=== PATIENT | male | born 1990 | race African-American/Black ===

== ENCOUNTER 2018-03-25 11:49 | Emergency (ER) | payer SELFPAY ==
[~2018-03-25] VITALS: Ht 177.8 cm; Wt 73.5 kg
[2018-03-25] MEDS ORDERED: predniSONE 20 MG TABLET ONE (12:03)
[2018-03-25] MEDS ORDERED: IPRATROPIUM NEB FS 0.5 MG/2.5 ML AMPUL.NEB ONE (12:04)
[2018-03-25] MEDS ORDERED: ALBUTEROL FS 2.5 MG/3 ML VIAL.NEB ONE (12:04)
--- NOTE | 2018-03-25 12:19 | NUR ---
SOB- ASTHMA ATTACK X FEW DAYS, NAD NOTED, VSS, PT WAS PUT ON O2 VIA MD BRANDIE AT .
[2018-03-25] MEDS ORDERED: IPRATROPIUM NEB FS 0.5 MG/2.5 ML AMPUL.NEB NEB ONE (12:30)
[2018-03-25] MEDS ORDERED: ALBUTEROL FS 2.5 MG/3 ML VIAL.NEB CONTNEB ONE (12:30)
[2018-03-25] MEDS ORDERED: predniSONE 20 MG TABLET PO ONE (12:30)
[2018-03-25 13:09] VITALS: BP 121/86
--- NOTE | 2018-03-25 13:10 | NUR ---
Patient discharged to home in stable condition. Written and verbal after care instructions given. Patient verbalizes understanding of instruction.
== END 2018-03-25 13:09 | disposition home or self-care (01) ==
LOC: ER 11:50
DX: J45.901 Unspecified asthma with (acute) exacerbation (principal); F12.10 Cannabis abuse, uncomplicated
CPT/HCPCS: A4606; Z7610

== ENCOUNTER 2022-01-18 06:42 | Emergency (ER) | payer OTHER ==
[~2022-01-18] VITALS: Ht 177.8 cm; Wt 81.6 kg
--- NOTE | 2022-01-18 06:50 | NUR ---
BIBS. ASTHMA ATTACK X 3 HRS. WHEEZING. INHALER INEFFECTIVE. PATIENT ALERT AND ORIENTED X3. AMBULATORY WITH NON LABORED BREATHING IN BED 07 ON MONITOR AND PULSE OX AWAITING MD PALMER./
[2022-01-18] MEDS ORDERED: methylPREDNISolone SOD SUCC 125 MG/2ML VIAL ONE (06:53)
[2022-01-18] MEDS ORDERED: IPRATROPIUM NEB FS 0.5 MG/2.5 ML AMPUL.NEB ONE (06:58)
[2022-01-18] MEDS ORDERED: ALBUTEROL FS 2.5 MG/3 ML VIAL.NEB ONE ×2 (06:58→08:28)
--- NOTE | 2022-01-18 06:59 | NUR ---
BIBS c/o ASTHMA ATTACK X 3 HRS. + WHEEZING.PER PATIENT, PRESCRIBED INHALER INEFFECTIVE. PT PLACED ON MONITOR AND PULSE OX. O2 SAT 94% RA. RT PAGED FOR BREATHING TX.
[2022-01-18] MEDS ORDERED: methylPREDNISolone SOD SUCC 125 MG/2ML VIAL IV ONE (07:00)
[2022-01-18] MEDS ORDERED: ALBUTEROL FS 2.5 MG/3 ML VIAL.NEB CONTNEB ONE (07:00)
[2022-01-18] MEDS ORDERED: IPRATROPIUM NEB FS 0.5 MG/2.5 ML AMPUL.NEB NEB ONE (07:00)
[2022-01-18] MEDS ORDERED: IV NS 0.9% 1,000 ML BAG IV ONE (07:00)
[2022-01-18 07:23] LABS: BASOPHILS # (AUTO) 0.1 K/uL (0.0-0.2); BASOPHILS % (AUTO) 0.8 % (0.0-2.0); HEMATOCRIT 53 % (39-51); HEMOGLOBIN 17.8 g/dL (13.5-17.5); LYMPHOCYTES # (AUTO) 2.6 K/uL (0.8-4.8); LYMPHOCYTES % (AUTO) 35.3 % (20.0-44.0); MEAN CORPUSCULAR HGB CONC 34 g/dl (31.0-36.0); MEAN CORPUSCULAR VOLUME 94 fL (80-96); MONOCYTES # (AUTO) 0.8 K/uL (0.1-1.30); MONOCYTES % (AUTO) 10.4 % (2.0-12.0); NEUTROPHILS # (AUTO) 3.5 K/uL (1.8-8.9); NEUTROPHILS % (AUTO) 46.5 % (43.0-81.0); PLATELET COUNT (AUTO) 260 K/uL (150-450); RED BLOOD CELL COUNT(AUTO) 5.63 MIL/uL (4.5-6.0); WHITE BLOOD COUNT (AUTO) 7.5 K/uL (4.3-11.0)
[2022-01-18 07:32] LABS: CREATININE 1.2 mg/dL (0.6-1.3); POTASSIUM 3.9 mmol/L (3.5-5.1)
--- NOTE | 2022-01-18 07:34 | NUR ---
ASSESSED PT ON BED AAOX4, NOT IN RESPIRATORY DISTRESS, V/S STABLE, WITH ON GOING BREATHING TX. NOT IN RESPIRATORY DISTRESS. WILL CONTINUE TO MONITOR.
[2022-01-18] MEDS ORDERED: ALBUTEROL FS 2.5 MG/3 ML VIAL.NEB NEB ONE (08:30)
--- NOTE | 2022-01-18 08:30 | NUR ---
RT AT BEDSIDE FOR BREATHING TX.
[2022-01-18] MEDS ORDERED: ALBU18HF2 INH (09:48)
[2022-01-18] MEDS ORDERED: PRED50TA PO (09:48)
--- NOTE | 2022-01-18 10:06 | NUR ---
Patient discharged to home in stable condition. Written and verbal after care instructions given. Patient verbalizes understanding of instruction.
[2022-01-18 10:07] VITALS: BP 124/89
== END 2022-01-18 10:07 | disposition home or self-care (01) ==
LOC: ER 06:44
DX: J45.909 Unspecified asthma, uncomplicated (principal); R06.00 Dyspnea, unspecified; Z79.899 Other long term (current) drug therapy
CPT/HCPCS: 36415; 71045; 80048; 85025; 93005; 94640; 94644; 96361; 96374; 99285; J2930; J7030

== ENCOUNTER 2022-05-13 02:25 | Emergency (ER) | payer OTHER ==
[~2022-05-13] VITALS: Ht 177.8 cm; Wt 90.7 kg
[~2022-05-13 02:25] MED LIST: ALBU18HF2 INH; PRED50TA PO
--- NOTE | 2022-05-13 02:40 | NUR ---
BIBS C/O ASTHMA ATTACK UNRELIEVED BY INHALER X1 WEEK +WHEEZING. PATIENT ALERT AND ORIENTED X3. AMBULATORY IN BED 02 ON MONITOR AND POX AWAITING MD PALMER.
[2022-05-13] MEDS ORDERED: ALBUTEROL FS 2.5 MG/0.5 ML VIAL.NEB ONE (02:44)
[2022-05-13] MEDS ORDERED: IPRATROPIUM NEB FS 0.5 MG/2.5 ML AMPUL.NEB ONE (02:44)
[2022-05-13] MEDS ORDERED: DEXAMETHASONE SOD PHOSPHATE 10 MG/ML VIAL ONE (02:45)
[2022-05-13] MEDS ORDERED: IPRATROPIUM NEB FS 0.5 MG/2.5 ML AMPUL.NEB NEB ONE (03:00)
[2022-05-13] MEDS ORDERED: ALBUTEROL FS 2.5 MG/0.5 ML VIAL.NEB NEB ONE (03:00)
[2022-05-13] MEDS ORDERED: DEXAMETHASONE SOD PHOSPHATE 4 MG/ML VIAL IM ONE (03:00)
[2022-05-13] MEDS ORDERED: PRED50TA PO (03:03)
--- NOTE | 2022-05-13 03:09 | NUR ---
PATIENT WANTS TO GO HOME AFTER IM INJECTION AND FIRST DOSE OF NEBULIZATION TREATMENT. HE REFUSED TO CONTINUE FOR THE NEXT ONE. DR MANCIA MADE AWARE
--- NOTE | 2022-05-13 03:10 | NUR ---
Patient discharged to home in stable condition. Written and verbal after care instructions given. Patient verbalizes understanding of instruction.
[2022-05-13 03:11] VITALS: BP 154/86
== END 2022-05-13 03:11 | disposition home or self-care (01) ==
LOC: ER 02:37
DX: J45.909 Unspecified asthma, uncomplicated (principal); Z79.899 Other long term (current) drug therapy
CPT/HCPCS: 99283; 96372; 94640; J1100

== ENCOUNTER 2022-06-02 12:54 | Emergency (ER) | payer OTHER ==
[~2022-06-02] VITALS: Ht 177.8 cm; Wt 79.4 kg
--- NOTE | 2022-06-02 13:25 | NUR ---
BIBS C/O SHORTNESS OF BREATH UPON EXERTION X3DAYS, RUN OUT OF INHALER YESTERDAY, HX OF ASTHMA. THE PATIENT DENIES PAIN. THE PATIENT IS ATTACHED TO THE MONITOR. WILL CONTINUE TO MONITOR THE PATIENT.
[2022-06-02] MEDS ORDERED: ALBUTEROL FS 2.5 MG/3 ML VIAL.NEB ONE (13:28)
[2022-06-02] MEDS ORDERED: IPRATROPIUM NEB FS 0.5 MG/2.5 ML AMPUL.NEB ONE (13:28)
[2022-06-02] MEDS ORDERED: ALBUTEROL FS 2.5 MG/3 ML VIAL.NEB NEB ONE (13:30)
[2022-06-02] MEDS ORDERED: predniSONE 20 MG TABLET PO ONE (13:30)
[2022-06-02] MEDS ORDERED: IPRATROPIUM NEB FS 0.5 MG/2.5 ML AMPUL.NEB NEB ONE (13:30)
[2022-06-02] MEDS ORDERED: predniSONE 20 MG TABLET ONE (13:58)
[2022-06-02] MEDS ORDERED: PRED20TA PO (14:40)
[2022-06-02] MEDS ORDERED: ALBU18HF2 INH (14:40)
[2022-06-02 14:56] VITALS: BP 141/87
--- NOTE | 2022-06-02 14:56 | NUR ---
Patient discharged to home in stable condition. Written and verbal after care instructions given. Patient verbalizes understanding of instruction.
== END 2022-06-02 14:56 | disposition home or self-care (01) ==
LOC: ER 12:55
DX: J45.909 Unspecified asthma, uncomplicated (principal); Z79.899 Other long term (current) drug therapy
CPT/HCPCS: 99285; 94644; J7512

== ENCOUNTER 2022-08-24 22:47 | Emergency (ER) | payer OTHER ==
[~2022-08-24] VITALS: Ht 177.8 cm; Wt 90.7 kg
[~2022-08-24 22:47] MED LIST changes: +PRED20TA PO; -PRED50TA PO
--- NOTE | 2022-08-24 23:30 | NUR ---
BIBSELF C/O SOB X 4 HRS. PATIENT IS KNOWN ASTHMATIC SINCE CODER. AAOX4. +WHEEZING. PATIENT PREFERS TO BE IN SITTING POSITION. VITALS CHECKED.
--- NOTE | 2022-08-24 23:37 | NUR ---
RT CALLED FOR BREATHING TX
[2022-08-24] MEDS ORDERED: DEXAMETHASONE SOD PHOSPHATE 10 MG/ML VIAL ONE (23:52)
[2022-08-24] MEDS ORDERED: ALBUTEROL FS 2.5 MG/0.5 ML VIAL.NEB ONE (23:53)
[2022-08-24] MEDS: DEXAMETHASONE SOD PHOSPHATE 4 MG/ML VIAL IM ONE (23:56)
[2022-08-24] MEDS: ALBUTEROL FS 2.5 MG/0.5 ML VIAL.NEB NEB ONE (23:58)
[2022-08-25] MEDS ORDERED: ALBUTEROL FS 2.5 MG/0.5 ML VIAL.NEB ONE (00:18)
[2022-08-25] MEDS: ALBUTEROL FS 2.5 MG/0.5 ML VIAL.NEB NEB ONE (00:22)
[2022-08-25] MEDS ORDERED: PRED50TA PO (00:40)
--- NOTE | 2022-08-25 00:57 | NUR ---
Patient discharged to home in stable condition. Written and verbal after care instructions given. Patient verbalizes understanding of instruction.
[2022-08-25 00:58] VITALS: BP 149/79
== END 2022-08-25 00:59 | disposition home or self-care (01) ==
LOC: ER 22:49
DX: J45.909 Unspecified asthma, uncomplicated (principal); Z79.51 Long term (current) use of inhaled steroids; Z79.899 Other long term (current) drug therapy
CPT/HCPCS: 99285; 96372; 94640 ×2; J1100

== ENCOUNTER 2023-02-19 15:11 | Inpatient (IN) | payer MEDICAID, OTHER ==
[~2023-02-19] VITALS: Ht 177.8 cm; Wt 97.5 kg
[~2023-02-19 15:11] MED LIST changes: +PRED50TA PO
--- NOTE | 2023-02-19 15:11 | NUR ---
PT IN BED 5 BREATHING IS LABORUS WITH USE OF ACCESSORY MUSCLES. ON BIPAP ON AR[facility]AL [facility]. PLACED ON BREATHING TREATMENT AND W/ NON REBREATHER. TACHCARDIA AT 144 BP WNL. O2 SAT 98% WITH SUPPLIMANTARY O2.
[2023-02-19] MEDS ORDERED: ALBUTEROL FS 2.5 MG/3 ML VIAL.NEB ONE (15:13)
[2023-02-19] MEDS ORDERED: Magnesium 1GM/D5W 100ML PREMIX 200 ML IV ONE (15:30)
[2023-02-19] MEDS ORDERED: ALBUTEROL FS 2.5 MG/3 ML VIAL.NEB NEB ONE (15:30)
[2023-02-19] MEDS ORDERED: IPRATROPIUM NEB FS 0.5 MG/2.5 ML AMPUL.NEB NEB ONE (15:30)
[2023-02-19 15:38] LABS: BASOPHILS % (AUTO) 0.1 % (0.0-2.0); EOSINOPHILS % (AUTO) 0.1 % (0.0-6.0); HEMATOCRIT 49 % (39-51); HEMOGLOBIN 16.5 g/dL (13.5-17.5); LYMPHOCYTES # (AUTO) 0.5 K/uL (0.8-4.8); LYMPHOCYTES % (AUTO) 4.1 % (20.0-44.0); MEAN CORPUSCULAR HGB CONC 33 g/dl (31.0-36.0); MEAN CORPUSCULAR VOLUME 89 fL (80-96); MONOCYTES # (AUTO) 0.1 K/uL (0.1-1.30); MONOCYTES % (AUTO) 0.8 % (2.0-12.0); NEUTROPHILS # (AUTO) 12.4 K/uL (1.8-8.9); NEUTROPHILS % (AUTO) 94.9 % (43.0-81.0); PLATELET COUNT (AUTO) 392 K/uL (150-450); RED BLOOD CELL COUNT(AUTO) 5.56 MIL/uL (4.5-6.0)
[2023-02-19 15:53] LABS: CALCIUM, SERUM 8.9 mg/dL (8.5-10.1); CARBON DIOXIDE 26 mmol/L (21-32); CHLORIDE 106 mmol/L (98-107); CREATININE 1.5 mg/dL (0.6-1.3); GLUCOSE 200 mg/dL (74-106); POTASSIUM 3.7 mmol/L (3.5-5.1); SODIUM SERUM 141 mmol/L (136-145); UREA NITROGEN, BLOOD 18 mg/dL (7-18)
[2023-02-19] MEDS ORDERED: Magnesium 1GM/D5W 100ML PREMIX 100 ML IV ONE ×2 (16:03→17:28)
[2023-02-19 16:08] LABS: ALANINE AMINOTRANSFERASE 45 U/L (12-78); ALBUMIN 4.1 g/dL (3.4-5.0); ALKALINE PHOSPHATASE 60 U/L (46-116); ASPARTATE AMINOTRANSFERASE 21 U/L (15-37); BILIRUBIN,DIRECT 0.1 mg/dL (0.0-0.2); BILIRUBIN,TOTAL 0.2 mg/dL (0.2-1.0); TOTAL PROTEIN, SERUM 8.1 g/dL (6.4-8.2)
--- NOTE | 2023-02-19 16:54 | NUR ---
PT REMOVED FROM NON REBREATHER ON ROOM AIR 95% O2SAT WHEEZING STILL PRESENT. WORK OF BREATHING HAS DECREASE NO MORE ABDOMINAL MUSCLE USE. BREATHING IS UNLABORED AND EVEN.
[2023-02-19] MEDS ORDERED: TERBUTALINE SULFATE 1 MG/ML VIAL SQ PRN (17:00)
[2023-02-19 17:04] LABS: ABG BASE EXCESS -0.4 mmol/L; ABG PCO2 37.2 mmHg (35.0-45.0); ABG PO2 74.9 mmHg (75.0-100.0); COHb 0.1 % (0.5-1.5); MetHb 0.5 % (0.0-1.5); SITE, ABG Right Radial; VENT MODE, BG Room Air Post tx
--- NOTE | 2023-02-19 17:24 | NUR ---
MRSA SWAB COLLECTED AND SENT TO LAB. BELONGINGS DOCUMENTED ON BELONGINGS SHEET.
--- NOTE | 2023-02-19 17:31 | NUR ---
COVID SWAB COLLECTED AND SENT TO LAB
--- NOTE | 2023-02-19 17:41 | NUR ---
HAND OFF REPORT GIVEVN TO MARISSA IN ICU
[2023-02-19 18:00] VITALS: BP 150/94
--- NOTE | 2023-02-19 18:00 | NUR ---
RN NOTE PATIENT IS ALERT AND ORIENTED X 4, BREATHING ON ROOM AIR O2 SAT OF 92. BP: 129/94, HR 115, RR 24, ORAL TEMP OF 98.1%. DENIES PAIN AT THIS TIME. PATIENT IS AMBULATORY , SKIN INTACT. IV ACCESS ON RH #22g SL. WILL ENDORSE CONTINUITY OF CARE TO FIRE WATCHER NURSE.
[2023-02-19] MEDS: methylPREDNISolone SOD SUCC 125 MG/2ML VIAL IV SCH ×2 (18:50→21:01)
[2023-02-19] MEDS: ENOXAPARIN SODIUM 40 MG/0.4 ML DISP.SYRIN SQ SCH (18:59)
[2023-02-19 19:00] VITALS: BP 129/83
[2023-02-19] MEDS ORDERED: IPRATROPIUM NEB FS 0.5 MG/2.5 ML AMPUL.NEB NEB PRN ×3 (19:00→20:04)
[2023-02-19] MEDS ORDERED: ONDANSETRON HCL/PF 4 MG/2 ML VIAL IVP PRN (19:00)
[2023-02-19] MEDS ORDERED: ALBUTEROL HALF STRENGTH 1.25 MG/3 ML VIAL.NEB NEB PRN ×2 (19:00→20:00)
[2023-02-19] MEDS ORDERED: ENOXAPARIN SODIUM 40 MG/0.4 ML DISP.SYRIN SQ SCH (19:00)
[2023-02-19] MEDS ORDERED: ACETAMINOPHEN 325 MG TABLET PO PRN (19:00)
[2023-02-19] MEDS: IV D5/ 0.9% NACL 1,000 ML IV PRN (19:02)
[2023-02-19] MEDS ORDERED: IPRATROPIUM NEB FS 0.5 MG/2.5 ML AMPUL.NEB NEB SCH (19:30)
[2023-02-19] MEDS ORDERED: ALBUTEROL HALF STRENGTH 1.25 MG/3 ML VIAL.NEB NEB SCH ×3 (19:30→22:30)
--- NOTE | 2023-02-19 19:30 | NUR ---
PT RECEIVED AWAKE, ALERT AND ORIENTED X 4, ON O2 VIA NASAL CANNULA AT 2 LPM. BREATHING LABORED, EDUCATED PT ON RELAXATION TECHNIQUES. 02SAT OF 98% BP: 129/94, HR 103, RR 24, ORAL TEMP OF 98.1. ADMITTING DX STATUS ASTHMATICUS WITH A HX OF SEVERE ASTHMA. WAS AT [facility] EARLIER AND WAS GIVEN STREROIDS AND BREATHING TX BEFORE HE WAS DISCHARGED. BROUGHT IN BY EMT DUE TO SEVERE SOB. DENIES SOB AND PAIN AT THIS TIME. ON A REGULAR DIET. SKIN INTACT. IV ACCESS ON RT HAND #22G AND ON SHARI ML #18G INFUSING D5NS AT 125 ML/HR. PATIENT IS CONTINENT AND AMBULATORY. SAFETY MEASURES IN PLACE. WILL CONTINUE PLAN OF CARE.
[2023-02-19] MEDS: ALBUTEROL HALF STRENGTH 1.25 MG/3 ML VIAL.NEB NEB SCH ×2 (19:57→22:21)
[2023-02-19] MEDS: IPRATROPIUM NEB FS 0.5 MG/2.5 ML AMPUL.NEB NEB SCH ×2 (19:59→22:21)
[2023-02-19 20:00] VITALS: BP 128/93
[2023-02-19] MEDS ORDERED: ALBUTEROL FS 2.5 MG/3 ML VIAL.NEB NEB PRN (20:00)
[2023-02-19 21:00] VITALS: BP 139/87
[2023-02-19 22:00] VITALS: BP 149/89
[2023-02-19 23:00] VITALS: BP 156/95
[2023-02-20] VITALS (15 sets, daily range): BP systolic 100–155; BP diastolic 62–113
[2023-02-20] MEDS: IV D5/ 0.9% NACL 1,000 ML IV PRN ×3 (02:17→11:48)
[2023-02-20] MEDS: ALBUTEROL HALF STRENGTH 1.25 MG/3 ML VIAL.NEB NEB SCH ×2 (02:19→04:30)
[2023-02-20] MEDS: IPRATROPIUM NEB FS 0.5 MG/2.5 ML AMPUL.NEB NEB SCH ×5 (02:19→20:09)
[2023-02-20 04:01] LABS: BASOPHILS % (AUTO) 0.1 % (0.0-2.0); HEMATOCRIT 44 % (39-51); HEMOGLOBIN 14.3 g/dL (13.5-17.5); LYMPHOCYTES # (AUTO) 0.5 K/uL (0.8-4.8); LYMPHOCYTES % (AUTO) 4.9 % (20.0-44.0); MEAN CORPUSCULAR HGB CONC 33 g/dl (31.0-36.0); MEAN CORPUSCULAR VOLUME 93 fL (80-96); MONOCYTES # (AUTO) 0.2 K/uL (0.1-1.30); MONOCYTES % (AUTO) 1.5 % (2.0-12.0); NEUTROPHILS # (AUTO) 9.8 K/uL (1.8-8.9); NEUTROPHILS % (AUTO) 93.5 % (43.0-81.0); PLATELET COUNT (AUTO) 337 K/uL (150-450); RED BLOOD CELL COUNT(AUTO) 4.74 MIL/uL (4.5-6.0); WHITE BLOOD COUNT (AUTO) 10.5 K/uL (4.3-11.0)
[2023-02-20] MEDS: methylPREDNISolone SOD SUCC 125 MG/2ML VIAL IV SCH ×3 (04:43→21:17)
[2023-02-20 05:21] LABS: PHOSPHORUS 1.4 mg/dL (2.5-4.9); POTASSIUM 4.1 mmol/L (3.5-5.1)
[2023-02-20 05:37] LABS: CREATININE 1.3 mg/dL (0.6-1.3); MAGNESIUM 2.5 mg/dL (1.8-2.4)
--- NOTE | 2023-02-20 06:46 | NUR ---
PT ASLEEP. AROUSABLE/RESPONSIVE. A/OX4. ON O2 VIA NASAL CANNULA AT 2 LPM, NO SOB. BREATHING EVEN AND UNLABORED, O2 SAT 98%. CLOTHING BUSHELER SHOWS SR, HR AT 80'S. IV ACCESS ON RT HAND #22G AND ON SHARI ML #18G INFUSING D5NS AT 125 ML/HR. PATIENT IS CONTINENT AND AMBULATORY. URINAL AT BEDSIDE. DUE MEDS GIVEN. NEEDS ATTENDED. SAFETY MEASURES MAINTAINED. WILL ENDORSE TO NEXT NURSE ON DUTY FOR ADILENE.
--- NOTE | 2023-02-20 07:00 | NUR ---
RN NOTE RECEIVED PATIENT IN BED RESTING ALERT ORIENTEDX4 VERBALLY RESPONSIVE ON 2L OXYGEN VIA NASAL CANNULA O2:98% IV ACCESS ON RIGHT HAND AND RIGHT UPPER ARM MIDLINE INTACT PATENT ON D5NS 125CC/HR SAFETY MEASURE IMPALEMENT,BED IN LOW POSITION AND LOCKED,CALL LIGHT WITHIN REACH CONTINUE TO MONITOR.
[2023-02-20] MEDS ORDERED: ALBUTEROL FS 2.5 MG/3 ML VIAL.NEB NEB SCH (08:00)
[2023-02-20] MEDS ORDERED: ALBUTEROL HALF STRENGTH 1.25 MG/3 ML VIAL.NEB NEB SCH (08:30)
[2023-02-20] MEDS ORDERED: IPRATROPIUM NEB FS 0.5 MG/2.5 ML AMPUL.NEB NEB SCH (08:30)
[2023-02-20] MEDS ORDERED: NEUTRA PHOS 1 POWD.PACKET PO ONE (10:00)
[2023-02-20] MEDS: ALBUTEROL FS 2.5 MG/0.5 ML VIAL.NEB NEB SCH ×3 (11:26→20:09)
--- NOTE | 2023-02-20 11:29 | NUR ---
RN NOTE DR REAL ORDERED MED-SURG STATUS FOR THIS PATIENT REPORT GIVEN TO POLINA TALAVERA AND PATIENT TRANSFERRED TO ROOM 113-1 ALERT ORIENTED X4 ON ROOM O2:99% NO SOB NOT ACUTE DISTRESS NOTED.
--- NOTE | 2023-02-20 11:39 | NUR ---
MARINE GEOLOGIST NOTES Received pt from ICU. Alert and oriented x4. No complaints of pain or discomfort at this time. Pt is currently on RA anf tolerating it well. IV access on SHARI midline patent and intact running IVF D5 NS @ 75 cc/hr. HOB elevated to pts comfort. Siderails up at all times x2. Call light within reach. Will continue to monitor.
--- NOTE | 2023-02-20 18:41 | NUR ---
JANITOR CLOSING NOTES All due meds and tx given as ordered. Pt tolerated everything well,. All needs attended to. Call light within reach. Will endorse to oncoming nurse,
--- NOTE | 2023-02-20 19:30 | NUR ---
MS RN OPENING NOTES - RECEIVED PATIENT AWAKE IN BED. A/O X4. BREATHING EVEN AND NON-LABORED ON ROOM AIR. NOT IN APPARENT DISTRESS. NO C/O PAIN OR DISCOMFORT AT THIS TIME. HAS THE FF IV ACCESS: RIGHT HAND #22G AND SALINE LOCKED; RIGHT UPPER ARM MIDLINE #18G WITH D5NS RUNNING AT 75 ML/HR. NO S/S OF INFILTRATION NOTED. PATIENT IS ON BED REST AND NEEDS MINIMAL ASSISTANCE ON ADLS. SAFETY MEASURES IN PLACE: BED LOCKED AND IN LOW POSITION, SIDE RAILS UP X2, CALL LIGHT WITHIN REACH. WILL CONTINUE PLAN OF CARE.
[2023-02-20] MEDS: ENOXAPARIN SODIUM 40 MG/0.4 ML DISP.SYRIN SQ SCH (21:17)
--- NOTE | 2023-02-20 21:56 | NUR ---
ENDORSED TO MOOSE TALAVERA FOR ADILENE
[2023-02-21] VITALS: BP 132/87
[2023-02-21] MEDS: ALBUTEROL FS 2.5 MG/0.5 ML VIAL.NEB NEB SCH ×3 (00:44→07:48)
[2023-02-21] MEDS: IPRATROPIUM NEB FS 0.5 MG/2.5 ML AMPUL.NEB NEB SCH ×3 (00:44→07:47)
[2023-02-21 04:00] VITALS: BP 120/71
[2023-02-21] MEDS: methylPREDNISolone SOD SUCC 125 MG/2ML VIAL IV SCH (05:10)
--- NOTE | 2023-02-21 06:21 | NUR ---
SE[employer] TEACHER LIBRARIAN closing note Pt resting in bed, asleep, breathing even and unlabored, n stable condition, afebrile, all due meds given per MD orders, tolerated well, all basic needs met end anticipated, pt slept well this shift, 0 c.o pain, all safety measures in place, will continue to monitor
--- NOTE | 2023-02-21 07:15 | NUR ---
DECK HAND NOTES Received pt awake in bed alert and oriented x4. No complaints of pain or discomfort at this time. Pt is currently on RA and tolerating it well. IV access on SHARI midline patent and intact running IVF D5 NS @ 75 cc/hr. HOB elevated to pts comfort. Siderails up at all times x2. Call light within reach. Will continue to monitor.
[2023-02-21 07:19] LABS: CALCIUM, SERUM 8.1 mg/dL (8.5-10.1); PHOSPHORUS 2.9 mg/dL (2.5-4.9); POTASSIUM 3.9 mmol/L (3.5-5.1)
[2023-02-21 08:00] VITALS: BP 123/79
[2023-02-21] MEDS ORDERED: FLUT1AER3 IH (10:26)
[2023-02-21] MEDS ORDERED: METH4TAB17 PO (10:26)
--- NOTE | 2023-02-21 11:22 | NUR ---
SAGGER PREPARER NOTES Pt cleared for discharge. Discharge instructions signed and explained to pt. Verbalized understanding. Belongings signed and taken with pt. IV access taken out.
== END 2023-02-21 16:21 | disposition home or self-care (01) | DRG 141 ==
LOC: ER 15:11 → ICU 17:41 → MEDSG1 02-20 11:32
PROVIDERS: ADMIT Nurse Practitioner Acute Care; ATTEND Internal Medicine
PROC: 05H933Z Insertion of Infusion Device into Right Brachial Vein, Percutaneous Approach (ICD-10-PCS; principal; 2023-02-19)
DX: J45.902 Unspecified asthma with status asthmaticus (principal); J96.01 Acute respiratory failure with hypoxia; N17.0 Acute kidney failure with tubular necrosis; E86.0 Dehydration; D72.829 Elevated white blood cell count, unspecified; E66.01 Morbid (severe) obesity due to excess calories; Z68.30 Body mass index [BMI] 30.0-30.9, adult; Z79.899 Other long term (current) drug therapy; R61 Generalized hyperhidrosis
CPT/HCPCS: 36410; 36415; 36600; 71045-TC; 80048-TC; 80061-TC; 80076-TC; 83735-TC; 83880; 84100-TC; 84484-TC; 85025-TC; 87081-TC; 94799-TC; A4223; G0378; J1650; J2930; J3105; J3475; J3490; J7042

== ENCOUNTER 2023-08-06 09:18 | Emergency (ER) | payer MEDICAID, OTHER ==
[~2023-08-06] VITALS: Ht 177.8 cm; Wt 98.0 kg
[~2023-08-06 09:18] MED LIST changes: +FLUT1AER3 IH; +METH4TAB17 PO; -PRED20TA PO; -PRED50TA PO
[2023-08-06] MEDS ORDERED: IPRATROPIUM NEB FS 0.5 MG/2.5 ML AMPUL.NEB NEB ONE (09:30)
[2023-08-06] MEDS ORDERED: methylPREDNISolone SOD SUCC 125 MG/2ML VIAL IV ONE (09:30)
[2023-08-06] MEDS ORDERED: ALBUTEROL FS 2.5 MG/3 ML VIAL.NEB CONTNEB ONE (09:30)
[2023-08-06] MEDS ORDERED: ALBUTEROL FS 2.5 MG/3 ML VIAL.NEB ONE (09:33)
[2023-08-06] MEDS ORDERED: methylPREDNISolone SOD SUCC 125 MG/2ML VIAL ONE (09:33)
[2023-08-06] MEDS ORDERED: IPRATROPIUM NEB FS 0.5 MG/2.5 ML AMPUL.NEB ONE (09:34)
[2023-08-06 09:39] VITALS: O2SAT 98
[2023-08-06 10:03] VITALS: O2SAT 99
[2023-08-06] MEDS ORDERED: PRED50TA PO (10:41)
[2023-08-06] MEDS ORDERED: ALBU18HF2 INH (10:41)
[2023-08-06 11:40] VITALS: BP 150/102; TEMP 98; O2SAT 98
== END 2023-08-06 11:40 | disposition home or self-care (01) ==
LOC: ER 09:40
DX: J45.901 Unspecified asthma with (acute) exacerbation (principal)
CPT/HCPCS: 99285; 96374; 71045; 93005; 94640; J2930